=== PATIENT | male | born 1950 ===

== ENCOUNTER 2023-01-24 20:31 | Inpatient (IN) | payer MEDICARE ==
[~2023-01-24] VITALS: Ht 172.7 cm; Wt 95.6 kg
[2023-01-25 08:40] VITALS: BP 149/79
[2023-01-25] MEDS ORDERED: LOSARTAN POTAS100 M1 PO (09:03)
[2023-01-25] MEDS ORDERED: ATOR10 PO (09:03)
[2023-01-25] MEDS ORDERED: AMLO5 PO (09:04)
[2023-01-25] MEDS ORDERED: TERA5 PO (09:05)
[2023-01-25 10:40] LABS: Hematocrit 23.9 % (37.0-53.0); Hemoglobin 7.5 g/dL (13.5-17.5)
[2023-01-25 11:43] VITALS: BP 163/79
[2023-01-25 12:17] LABS: BASOPHILS ABSOLUTE AUTO 0.01 K/mm3 (0.00-0.23); BASOPHILS PERCENT AUTO 0 % (0-2); EOSINOPHILS PERCENT AUTO 0 % (0-6); Hematocrit 23.3 % (37.0-53.0); Hemoglobin 7.4 g/dL (13.5-17.5); IMMATURE GRAN ABSOLUTE AUTO 0.04 K/mm3 (0.00-0.10); IMMATURE GRAN PERCENT AUTO 1 % (0-1); LYMPHOCYTES ABSOLUTE AUTO 1.13 K/mm3 (0.84-5.20); LYMPHOCYTES PERCENT AUTO 26 % (21-46); MONOCYTES ABSOLUTE AUTO 0.55 K/mm3 (0.16-1.47); MONOCYTES PERCENT AUTO 13 % (4-13); Mean Corpuscular HGB 32.2 pg (26.0-34.0); Mean Corpuscular HGB Conc 31.8 g/dL (31.5-36.5); Mean Corpuscular Volume 101 fL (80-100); Mean Platelet Volume 10.1 fL (9.1-12.4); NEUTROPHILS ABSOLUTE AUTO 2.65 K/mm3 (1.96-9.15); NEUTROPHILS PERCENT AUTO 61 % (41-73); Platelet Count 246 K/mm3 (150-400); RDW Coefficient Variation 15.7 % (11.7-14.2); RDW Standard Deviation 58.1 fL (35.1-46.3); White Blood Cell Count 4.38 K/mm3 (4.00-11.30)
[2023-01-25 12:36] LABS: International Normalized Ratio 1.04; Prothrombin Time Results 10.9 Sec (9.7-11.5)
--- NOTE | 2023-01-25 13:00 | NUR ---
ARRIVAL TO PCU Patient arrived to PCU at 0830 via rny from transport. Patient transfered from [facility] to PCU bed indepdently. Patient is alert and oriented x4. perrla. patient reports no chest pain/pressure, shortness of breath or pain. Patient skin is clean dry and intact. Abd is hypoactive, but reports no pain. patient stated having "dark: stools for several weeks. patient stated he thought it was from the "wine" or chocolate" he was consuming so he stopped and the dark stools continued. This Rn provided education on GI bleed symptoms. Patient lung sounds clear throughout. see shift assessment for further detials. Tele Sinus 80s. BP stable, and repeat vitals blood presuure was hypertensive, called md and md placed new orders. this rn called the GI consult in and MD Hodge to be NPO at 1500, and can have water until then. patient updated on the plan of care. plan of care is up to date. patient performs adls indepdently and calls if needing assistance.
[2023-01-25 15:27] VITALS: BP 140/81
--- NOTE | 2023-01-25 16:57 | NUR ---
SHIFT SUMMARY patient NPO since 1500, and has been only had water since arriving to PCU this morning per MD Hodge orders. Patient neuro reamins intact. patient reports no shortness of breath. patient reports no chest pain/pressure. patient reported a headache, but due to NPO status unable to give medication for relief, offered ice packs. Patient has had no bowel movement since arriving here. No acute changes this shift. Plan of care is up to date.
[2023-01-25 17:42] LABS: Hematocrit 22.4 % (37.0-53.0)
[2023-01-25 19:47] VITALS: BP 130/83
--- NOTE | 2023-01-25 22:27 | NUR ---
ASSUMPTION OF CARE THIS RN ASSUMED CARE OF PATIENT AT 1900. REPORT TAKEN FROM NIKITA YARBROUGH. PATIENT DENIES ABD PAIN, N/V, AND BLACK TARRY STOOLS AT THIS TIME. DENIES DIZZINESS AND SOB. MD MARINO TO BEDSIDE AT SHIFT CHANGE. VITALS STABLE. 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 PATIENT ALERT AND ORIENTED FULLY AND ABLE TO MAKE NEEDS KNOWN. BED IN LOWEST POSITION AND CALL LIGHT WITHIN REACH.
[2023-01-25 23:30] VITALS: BP 113/58
[2023-01-26] VITALS (16 sets, daily range): BP systolic 114–148; BP diastolic 54–85
[2023-01-26 04:47] LABS: Hematocrit 21.9 % (37.0-53.0); Hemoglobin 6.9 g/dL (13.5-17.5); Mean Corpuscular HGB 31.5 pg (26.0-34.0); Mean Corpuscular HGB Conc 31.5 g/dL (31.5-36.5); Mean Corpuscular Volume 100 fL (80-100); Mean Platelet Volume 9.9 fL (9.1-12.4); Platelet Count 232 K/mm3 (150-400); RDW Coefficient Variation 15.3 % (11.7-14.2); RDW Standard Deviation 55.8 fL (35.1-46.3); Red Blood Cell Count 2.19 M/mm3 (4.30-5.90); White Blood Cell Count 4.44 K/mm3 (4.00-11.30)
[2023-01-26 05:08] LABS: Albumin, Blood 3.3 g/dL (3.4-5.0); Albumin/Globulin Ratio 1.2 (0.8-1.8); Bilirubin, Total 0.5 mg/dL (0.1-1.0); Bun/Creatinine Ratio 13.7 (12.0-20.0); Calcium, Blood 7.9 mg/dL (8.5-10.1); Creatinine, Blood 1.02 mg/dL (0.60-1.20); Globulin, Blood 2.7 g/dL (2.2-4.0); Potassium, Blood 3.9 mmol/L (3.5-5.5)
--- NOTE | 2023-01-26 05:12 | NUR ---
SHIFT SUMMARY NO ACUTE CHANGES OVERNIGHT. NO S/S OF DARK TARRY STOOLS, HEMATEMESIS, DIZZINESS, OR SOB. VITALS STABLE. PATIENT ALERT AND ORIENTED FULLY. ABLE TO MAKE NEEDS KNOWN. NS INFUSING PER EMAR. BED IN LOWEST POSITION AND CALL LIGHT WITHIN REACH. THIS RN WILL CONTINUE TO MONITOR UNTIL SHIFT CHANGE AT 0700.
--- NOTE | 2023-01-26 06:14 | NUR ---
PATIENT UPDATE CALL PLACED TO MD GERARD REGARDING HGB OF 6.9. ORDER TO TRANSUSE 1 UNIT OF PRBC'S. LAB TO DRAW TYPE/SCREEN. PATIENT EDUCATED ON NEED FOR BLOOD. CONSENT SIGNED. VITALS STABLE. THIS RN WILL REPORT TO ONCOMING RN.
--- NOTE | 2023-01-26 08:42 | NUR ---
CARE ASSUMPTION This RN assumed care at 0700. vital signs stable. tele sr 77. patient is alert and oriented x4. patient reports no pain, chest pain/pressure, or shortness of breath. clear lung sounds throughout. see shift assessment for further detials. patient is currently receiving one unit of blood. patient vital stable and no adverse reactions. patient is npo for scope today. patient updated on plan of care. patient uses call light approrpiately.
--- NOTE | 2023-01-26 10:10 | NUR ---
left for day egd patient left for egd. blood still infusing when leaving the unit.
--- NOTE | 2023-01-26 11:01 | NUR ---
01/26/23 [address] LR; SEE ANESTHESIA RECORDS.
--- NOTE | 2023-01-26 11:37 | NUR ---
return from surgery - to imaging patient returned from surgery and transfered to pcu bed, upon transfering to pcu bed imaging arrived and patient went to imaging.
--- NOTE | 2023-01-26 12:33 | NUR ---
RHYTHM CHANGE This RN received a call from tele, that this patient went into a 2nd degree av block and then went back to tele sinus rhythm with a first degree av block. this rn called md walker to notify, no new orders.
[2023-01-26 14:27] LABS: Hematocrit 23.7 % (37.0-53.0); Hemoglobin 7.7 g/dL (13.5-17.5)
--- NOTE | 2023-01-26 14:57 | NUR ---
UPDATE Md Paul in room to see patient and discussed the results of the abdomen and the EGD. MD Paul updated family over the phone while in the room with the patient.
--- NOTE | 2023-01-26 15:12 | NUR ---
UPDATE After phone call with patient sister and Md Paul in the room. This Rn sat at bedside and provided therapeutic communication and active listening and silence. patient asked for time to digust information and told the patient to call if they need anything. patient verbalized understanding.
--- NOTE | 2023-01-26 17:27 | NUR ---
SHIFT SUMMARY Patient neuro remains intact. see pervious notes. no acute changes since last note. patient had a shower and linen change. seems to be in somewhat better spirits, but is still worried. this rn sat at bedside and listened to the paients concerns. call light is within reach. plan is up to date.
--- NOTE | 2023-01-26 23:32 | NUR ---
ASSUMPTION OF CARE NOTE THIS RN ASSUMED CARE OF PT AT 1915. PT LYING IN BED, WATCHING TV. PT A&O X4; PLEASANT AND COOPERATIVE WITH CARE. PT MILDLY ANXIOUS ABOUT SITUATION AND FINDINGS IN CT SCAN TODAY. PT ASKING A LOT OF QUESTIONS REGARDING SITUATION. THIS RN ANSWERED QUESTIONS AND PROVIDED THERAPUETIC LISTENING AND SUPPORT. VSS. PT DENIES CP OR PRESSURE, DENIES SOB. PT DENIES N/V OR ABD PAIN REPORTS MINIMAL LIGHTHEADNESS WHEN SITTING UP, BUT "GOES AWAY AFTER SITTING UP FOR A FEW SECONDS". REPORTS THIS IS NOT NORMAL AND HAS IMPROVED SINCE ADMIT. LUNG SOUNDS CLEAR. PT USING URINAL INDEPENDENTLY TO VOID, REPORTS NO ISSUES OR CONCERS. PT REPORTS HAVING A BM THIS AFTERNOON; STILL REPORTING "BLACK, TARRY, UNFORMED STOOL". PT DENIES ANY NEEDS AT THIS TIME. CALL LIGHT IN REACH AND BED IN LOWEST POSITION.
[2023-01-27] VITALS: BP 123/65
[2023-01-27 04:00] VITALS: BP 123/75
[2023-01-27 04:26] LABS: Hematocrit 23.9 % (37.0-53.0); Hemoglobin 7.7 g/dL (13.5-17.5); Mean Corpuscular HGB 30.9 pg (26.0-34.0); Mean Corpuscular HGB Conc 32.2 g/dL (31.5-36.5); Mean Corpuscular Volume 96 fL (80-100); Mean Platelet Volume 9.9 fL (9.1-12.4); Platelet Count 227 K/mm3 (150-400); RDW Coefficient Variation 15.7 % (11.7-14.2); RDW Standard Deviation 55.3 fL (35.1-46.3); Red Blood Cell Count 2.49 M/mm3 (4.30-5.90); White Blood Cell Count 4.71 K/mm3 (4.00-11.30)
[2023-01-27 04:41] LABS: Bun/Creatinine Ratio 12.5 (12.0-20.0); Calcium, Blood 8.3 mg/dL (8.5-10.1); Creatinine, Blood 1.12 mg/dL (0.60-1.20); Potassium, Blood 3.9 mmol/L (3.5-5.5)
--- NOTE | 2023-01-27 05:50 | NUR ---
SHIFT SUMMARY PT REMAINS A&O X4. VSS; BP IN 120'S, REMAINS IN SR HR 70'S - 80'S. REMAINS ON RA, SPO2 >96%. PT DENIES CP OR PRESSURE, DENIES SOB. PT DENIES N/V, ABD PAIN OR DIZZINESS OR LIGHTHEADNESS. STATES "SOMETIMES I WILL BE MILDLY LIGHTHEADED WHEN FIRST SITTING UP" BUT QUICKLY RESOLVES. PT ABLE TO AMBULATE AND USING URINAL INDEPENDENTLY W/SUPERVISION. PT VOIDING WELL. NO BM THIS SHIFT, PT REPORTS LAST BM YESTERDAY DURING AM SHIFT. REPORTS IT WAS STILL "DARK, SOFT AND TARRY'. PT DENIES GENERAL PAIN. NO ACUTE CHANGES DURING SHIFT. PT RESTED WELL. PT EXPRESSES CONCERNS AND WORRIED ABOUT POSSIBLE CONDITION AND FINDINGS DURING PROCEDURE. PT STATES AT TIMES "MY MIND IS RACING OVER AND PROCESSING EVERYTHING". THIS RN OFFERED SUPPORT AND LISTENING. HGB REMAINS STABLE AT 7.7, SAME PREVIOUS LAB DRAW. PT CURRENTLY RESTING WELL, CALL LIGHT IN REACH. WILL UPDATE ONCOMING RN
[2023-01-27 07:44] VITALS: BP 114/57
--- NOTE | 2023-01-27 10:03 | NUR ---
AM NOTE: PT ALERT AND ORIENTED AND ABLE TO ANSWER QUESTIONS AND STATE NEEDS APPROPRIATELY. PT ABLE TO AMBULATE TO THE BATHROOM INDEPENDENTLY. PT MADE MEDICAL STATUS WITH TELE PER DR. REYNOLDS WITH PLANS FOR A ZIO PATCH TODAY OR TOMORROW. PT SISTER ON THE PHONE WHILE IN THE ROOM AND UPDATED TO PLAN OF CARE. PT PLANS TO DISCHARGE HOME, BACK TO [place] TOMORROW. PT DENIED ANY CHEST PAIN OR PRESSURE. PT STATED HE HAS NOT HAD ANY BM TODAY. VSS SBP IN THE 110'S, HR 70'S-80'S. PT SLIGHTLY ANXIOUS ABOUT HIS BIOPSY, PALLIATIVE CARE CONSULT PLACED. WILL CONTINUE TO MONITOR T/O THE SHIFT.
[2023-01-27 11:22] VITALS: BP 127/76
[2023-01-27 15:31] VITALS: BP 133/79
--- NOTE | 2023-01-27 17:32 | NUR ---
SHIFT SUMMARY: NO ACUTE CHANGES T/O THE SHIFT. PT REMAINS MEDICAL STATUS WITH TELE. PLANS FOR A ZIO PATCH AND DISCHARGE BACK TO [place] TOMORROW. PT HR 70S-80'S. SBP 130'S WITH NO C/O CHEST PAIN OR PRESSURE. PT HAD C/O ABDOMINAL PAIN ON THE RIGHT SIDE WHICH WAS RELEIVED BY REPOSITIONING. PT HAS HAD NO FURTHER DARK STOOLS T/O THE SHIFT. PT AWARE OF PLAN AND UPDATED SISTER. WLL CONTINUE TO MONITOR AND GIVE REPORT TO ONCOMING DARCY RN.
[2023-01-27 20:28] VITALS: BP 126/75
[2023-01-28 04:56] VITALS: BP 106/60
--- NOTE | 2023-01-28 05:58 | NUR ---
SHIFT SUMMARY MED TELE STATUS PATIENT ALERT AND ORIENTED, ABLE TO MAKE NEEDS KNOWN TO STAFF. VITALS STABLE, PATIENT REMAINS ON RA DURING THE NIGHT WITH SPO2 >92%. INDEPDENDENT IN THE ROOM. AMBULATED INTO BATHROOM WITH ADEQUATE URINE OUTPUT, DENIES ANY DARK/BLACK STOOLS DURING THE NIGHT. PATIENT ABLE TO GET GOOD AMOUNT OF SLEEP WITH NO COMPLAINTS OF PAIN. PATIENT AWAITING DISCHARGE BACK TO [place]. NO OTHER CHANGES, WILL REPORT TO DAY SHIFT RN.
[2023-01-28 07:44] VITALS: BP 140/89
--- NOTE | 2023-01-28 08:00 | NUR ---
ASSUMED CARE: ASSUMED CARE OF PT APPROX 0715. PT A&OX4. LYING IN BED. HR 70'S. SBP 140. PT DENIES CP/PRESSURE. O2 SATS >95% ON RA. PT DENIES SOB. PT REPORTS HE IS AWAITING DISCHARGE BACK TO [place]. ZIO PATCH TO BE PLACED THIS AM. CALL LIGHT WITHIN REACH. NO FURTHER NEEDS AT THIS TIME.
[2023-01-28 08:12] LABS: Hematocrit 26.5 % (37.0-53.0); Hemoglobin 8.7 g/dL (13.5-17.5)
[2023-01-28] MEDS ORDERED: PANT40 PO (09:04)
[2023-01-28 11:12] VITALS: BP 146/75
--- NOTE | 2023-01-29 09:47 | NUR ---
Pt called in stating that the pharmacy did not recieve new perscription, called [facility] in [place] and spoke with pharmacist and provided
== END 2023-01-28 11:59 | disposition home or self-care (01) | DRG 375 ==
LOC: PCU 20:31
PROVIDERS: Family Medicine; Hospitalist; Student in an Organized Health Care Education/Training Program; ADMIT Internal Medicine
PROC: 0DB48ZX Excision of Esophagogastric Junction, Via Natural or Artificial Opening Endoscopic, Diagnostic (ICD-10-PCS; 2023-01-26)
PROC: 30233N1 Transfusion of Nonautologous Red Blood Cells into Peripheral Vein, Percutaneous Approach (ICD-10-PCS; principal; 2023-01-27)
DX: C16.0 Malignant neoplasm of cardia (principal); D62 Acute posthemorrhagic anemia; K92.1 Melena; D63.0 Anemia in neoplastic disease; I10 Essential (primary) hypertension; I44.1 Atrioventricular block, second degree; E78.5 Hyperlipidemia, unspecified; N40.0 Benign prostatic hyperplasia without lower urinary tract symptoms; K75.9 Inflammatory liver disease, unspecified; E66.9 Obesity, unspecified; G47.00 Insomnia, unspecified; Z96.643 Presence of artificial hip joint, bilateral; Z68.32 Body mass index [BMI] 32.0-32.9, adult; Z86.19 Personal history of other infectious and parasitic diseases; Z90.49 Acquired absence of other specified parts of digestive tract; Z87.891 Personal history of nicotine dependence; Z79.899 Other long term (current) drug therapy
CPT/HCPCS: 36415; 36430; 71260; 74177; 80048; 80053; 84443; 85014; 85018; 85025; 85027; 85610; 86850; 86900; 86901; 86923; 88305; 88360; 93246; 94760; 96361; 96374; 96376; A9270; C9113; G0378; J2001; J2250; J2704; J7030; J7120; P9016; Q9967